=== PATIENT | female | born 1975 | race Hispanic/Latino ===

== ENCOUNTER 2017-05-08 15:45 | Emergency (ER) | payer BC, OTHER ==
[2017-05-08] MEDS ORDERED: ISOVUE-370 76%-LOCM 1 ML ONE (15:55)
[2017-05-08 16:06] LABS: Bilirubin Negative (Negative); Blood, Urine Trace (Negative); Glucose, Urine (Dipstick) Negative (Negative); Ketone, Urine Negative (Negative); Nitrite Negative (Negative); Protein, Urine (Dipstick) Negative (Neg-Trace); Urobilinogen 0.2 mg/dL (0.2-1.0)
[2017-05-08 16:19] LABS: Bacteria/HPF Rare-Few HPF (None Seen); Hyaline Casts/LPF 0-3 HYALINE CAST LPF (0-3 Hyaline); RBC/HPF 0-3 HPF (0-3); Squamous Epithelial 21-50 HPF (0-3); WBC/HPF 0-3 HPF (0-3)
[2017-05-08] MEDS ORDERED: Ondansetron HCl/PF 4 MG/2 ML Vial ONE (18:17)
[2017-05-08 20:14] LABS: #Eosinphils 0.7 thou/uL (0.0-0.7); #Lymphocytes 2.1 thou/uL (1.20-3.40); #Monocytes 0.8 thou/uL (0.11-0.59); #Neutrophils 4.9 thou/uL (1.40-6.50); %Basophils 0.4 % (0.0-1.0); %Eosinophils 7.9 % (0.0-10.0); %Lymphocytes 25.1 % (21.0-51.0); %Monocytes 9.1 % (0.0-10.0); Hematocrit 36.9 % (36.0-47.0); Mean Platelet Volume 8.7 fL (7.4-10.4); Red Blood Cell (RBC) Count 4.59 mill/uL (4.20-5.40); White Blood Cell (WBC) Count 8.4 thou/uL (4.8-10.8)
[2017-05-08 20:19] LABS: ALT (SGPT) 37 U/L (8-55); AST (SGOT) 30 U/L (5-34); Alkaline Phosphatase 80 U/L (40-150); Anion Gap 11 mmol/L (10-20); BUN (Urea Nitrogen) 13 mg/dL (7.0-18.7); Bilirubin, Total 0.3 mg/dL (0.2-1.2); Calc. Creatinine Clearance 0 mL/min (70-130); Calcium 9.4 mg/dL (7.8-10.44); Carbon Dioxide 27 mmol/L (22-29); Chloride 103 mmol/L (98-107); Estimated GFR-MDRD Greater than 90; Globulin 3.2 g/dL (2.4-3.5); Protein, Total 7.3 g/dL (6.0-8.3)
--- NOTE | 2017-05-08 21:39 | CT ---
CT ABDOMEN WITH IV CONTRAST CT PELVIS WITH IV CONTRAST: Date: 05-08-17 History: Right flank pain with pain radiating to right upper quadrant. History of frequent urinary t ract infections. FINDINGS: There is minimal atelectasis right lung base. A 3 cm low density lesion is seen within the midportion of the right kidney compatible with a renal cyst. Kidneys otherwise have a normal CT appearance bilaterally without evidence of hydronephrosis. The urinary bladder is completely decompressed and not well evaluated on this exam. Liver demonstrates mild diminished attenuation which may be reflective of mild fatty infiltration. L iver is otherwise normal in appearance. The spleen, pancreas, bilateral adrenal glands, left kidney and abdominal aorta demonstrate a normal CT appearance. The appendix is visualized and normal in diameter. There is no free fluid, fluid collection, or lymphadenopathy seen in the abdomen or pelvis. IMPRESSION: 1. No acute findings are seen in the abdomen or pelvis. 2. Right renal cyst. 3. No hydronephrosis is present, and kidneys demonstrate symmetric appearance and enhancement patter n bilaterally. 4. Decompressed urinary bladder which limits adequate evaluation. 5. No CT evidence of appendicitis. POS: [facility]
== END 2017-05-08 22:16 | disposition home or self-care (01) ==
LOC: ERS 15:45
DX: N28.1 Cyst of kidney, acquired (principal)
CPT/HCPCS: 74177; 80053; 81003; 81015; 81025; 85025; 96361; 96374; 96375; J2270; J2405

== ENCOUNTER 2017-08-26 17:53 | Emergency (ER) | payer BC, OTHER ==
[2017-08-26] MEDS ORDERED: Ketorolac Tromethamine 60 MG/2 ML VIAL ONE (18:19)
== END 2017-08-26 18:45 | disposition home or self-care (01) ==
LOC: ERS 17:53
DX: K02.9 Dental caries, unspecified (principal)
CPT/HCPCS: 96372; J1885

== ENCOUNTER 2018-03-07 19:26 | Emergency (ER) | payer BC | END 2018-03-07 21:33 | disposition left against medical advice (07) | LOC: ERS 19:26 | DX: Z53.21 Procedure and treatment not carried out due to patient leaving prior to being seen by health care provider (principal) ==

== ENCOUNTER 2018-09-25 11:03 | Emergency (ER) | payer BC ==
[~2018-09-25 11:03] MED LIST: ISOVUE-370 76%-LOCM 1 ML ONE
[2018-09-25 12:17] LABS: #Eosinphils 0.2 thou/uL (0.0-0.7); #Lymphocytes 1.2 thou/uL (1.20-3.40); #Monocytes 0.4 thou/uL (0.11-0.59); #Neutrophils 4.2 thou/uL (1.40-6.50); %Basophils 0.5 % (0.0-1.0); %Eosinophils 3.8 % (0.0-10.0); %Lymphocytes 20.1 % (21.0-51.0); %Monocytes 6.7 % (0.0-10.0); %Neutrophils 68.9 % (42.0-75.0); Mean Corpuscular HGB CONC 32.6 g/dL (32.0-36.0); Mean Corpuscular Hemoglobin 27.5 pg (27.0-31.0); Mean Corpuscular Volume 84.2 fL (78.0-98.0); Mean Platelet Volume 7.9 fL (7.4-10.4); Platelet Count 239 thou/uL (130-400); RBC Distribution Width 12.1 % (11.5-14.5); Red Blood Cell (RBC) Count 4.73 mill/uL (4.20-5.40); White Blood Cell (WBC) Count 6.1 thou/uL (4.8-10.8)
[2018-09-25 12:18] LABS: Bilirubin Negative (Negative); Blood, Urine Negative (Negative); Clarity CLOUDY (Clear); Glucose, Urine (Dipstick) Negative (Negative); Leukocyte Small (Negative); Nitrite Negative (Negative); Protein, Urine (Dipstick) Negative (Neg-Trace); Urobilinogen 0.2 mg/dL (0.2-1.0)
[2018-09-25 12:22] LABS: Bacteria/HPF None Seen HPF (None Seen); Hyaline Casts/LPF 0-3 HYALINE CAST LPF (0-3 Hyaline); Pathc Cast-AUWi Flag 1.01 (0-2.49); RBC/HPF 0-3 HPF (0-3); WBC/HPF 0-3 HPF (0-3)
[2018-09-25 12:41] LABS: ALT (SGPT) 31 U/L (8-55); AST (SGOT) 23 U/L (5-34); Albumin 4.2 g/dL (3.5-5.0); Alkaline Phosphatase 66 U/L (40-150); Anion Gap 9 mmol/L (10-20); BUN (Urea Nitrogen) 13 mg/dL (7.0-18.7); Bilirubin, Total 0.8 mg/dL (0.2-1.2); Calc. Creatinine Clearance 0 mL/min (70-130); Calcium 9.6 mg/dL (7.8-10.44); Carbon Dioxide 29 mmol/L (22-29); Chloride 103 mmol/L (98-107); Estimated GFR-MDRD 90; Globulin 3.2 g/dL (2.4-3.5); Glucose 90 mg/dL (70-105); Protein, Total 7.4 g/dL (6.0-8.3); Sodium 137 mmol/L (136-145)
--- NOTE | 2018-09-25 14:30 | CT ---
CT OF THE ABDOMEN AND PELVIS WITH CONTRAST: Date: 09/25/18 COMPARISON: 05/08/17. INDICATION: Bilateral flank pain. FINDINGS: Redemonstration of a parapelvic cyst of the anterior aspect of the upper to mid right kidney. Left ki dney is grossly unremarkable. No evidence of adrenal mass. There is generalized low attenuation of th e hepatic parenchyma, which may be related to hepatic steatosis. Correlate with liver function enzyme s. No acute abnormality of the pancreas or spleen. The bowel is incompletely evaluated without enteri c contrast administration. No free air or ascites. The abdominal aorta is normal caliber. There is no consolidation within the visualized lung bases. Osseous structures are intact. There is a stable sof t tissue structure with small hypodensities favoring an ovary with follicles, not significantly pimentel ed from 05/08/17 CT exam. As necessary, attempt could be performed to confirm with pelvic ultrasound. IMPRESSION: 1. Stable right renal cyst. 2. No acute abnormalities are identified. 3. Additional details are discussed above. POS: [facility]
[2018-09-27 21:50] LABS: Chlamydia by PCR Not Detected (NotDetected); GC by PCR Not Detected (NotDetected)
== END 2018-09-25 14:33 | disposition home or self-care (01) ==
LOC: ERS 11:03
DX: N89.8 Other specified noninflammatory disorders of vagina (principal); R10.9 Unspecified abdominal pain
CPT/HCPCS: 36415; 74177; 80053; 81003; 81015; 85025; 87480; 87491; 87510; 87591; 87660; Q9966

== ENCOUNTER 2018-11-25 15:56 | Emergency (ER) | payer BC ==
--- NOTE | 2018-11-25 16:41 | CT ---
CT head noncontrast HISTORY: Headache. COMPARISON: 02/04/2017. FINDINGS: There is no evidence of acute intracranial hemorrhage or infarct. The ventricles appear nor mal in size, shape and position. There is no mass effect or shift of midline structures. Visualized paranasal sinuses remain well aerated. IMPRESSION: No acute intracranial abnormalities are demonstrated.
[2018-11-25] MEDS ORDERED: Acetaminophen 500 MG TAB ONE (16:52)
[2018-11-25] MEDS ORDERED: Metoclopramide HCl 10 MG/2 ML VIAL ONE (16:52)
[2018-11-25] MEDS ORDERED: diphenhydrAMINE 50 MG/ML VIAL ONE (16:52)
[2018-11-25] MEDS ORDERED: Lidocaine 1% (PF) 30 ML VIAL ONE (17:28)
[2018-11-25 18:14] LABS: Color Of CSF Supernatant COLORLESS (Colorless); Tube # 1; Unspun CSF Color COLORLESS (Colorless)
[2018-11-25 18:21] LABS: CSF Source CSF; Clarity Clear (Clear); RBC Count - Manual 118 /cumm (None Seen); Tube # 2; WBC/NonHematics Count - Manual 1 /cumm (0-5)
[2018-11-25 18:22] LABS: CSF Source CSF; Clarity Clear (Clear); RBC Count - Manual 43 /cumm (None Seen); Tube # 4; WBC/NonHematics Count - Manual 0 /cumm (0-5)
[2018-11-25 18:26] LABS: CSF, Glucose 74 mg/dl (40-70); CSF, Protein 37 mg/dL (15-40)
== END 2018-11-25 19:05 | disposition home or self-care (01) ==
LOC: ERS 15:56
DX: R51 Headache (principal)
CPT/HCPCS: 62270; 70450; 82945; 84157; 87070; 87205; 89051; 96365; 96375; J1200; J2001; J2765

== ENCOUNTER 2019-03-10 19:23 | Emergency (ER) | payer BC ==
[2019-03-10] MEDS ORDERED: Acetaminophen 500 MG TAB ONE (21:09)
== END 2019-03-10 21:24 | disposition home or self-care (01) ==
LOC: ERS 19:23
DX: K04.7 Periapical abscess without sinus (principal)
CPT/HCPCS: 99282

== ENCOUNTER 2019-08-15 17:41 | Emergency (ER) | payer BC, SELFPAY ==
[2019-08-15 18:09] LABS: Bilirubin Negative (Negative); Blood, Urine Negative (Negative); Clarity Clear (Clear); Glucose, Urine (Dipstick) Normal (Negative); Leukocyte Negative Leu/uL (Negative); Nitrite Negative (Negative); Protein, Urine (Dipstick) Negative (Neg-Trace); Urobilinogen Normal mg/dL (Less than 2)
[2019-08-15 18:15] LABS: Pregnancy Test - Urine (BHCG) Negative (Negative); Pregu Control Background? CLEAR/WHITE (CLR/WHITE); Pregu Control Bar Appear? YES (CONTROL BAR); Specific Gravity 1.008 (1.002-1.036)
[2019-08-15 19:04] LABS: #Basophils 0.1 thou/uL (0.0-0.2); #Eosinphils 0.2 thou/uL (0.0-0.7); #Monocytes 0.8 thou/uL (0.11-0.59); #Neutrophils 6.4 thou/uL (1.40-6.50); %Basophils 0.6 % (0.0-1.0); %Eosinophils 2.4 % (0.0-10.0); %Monocytes 8.4 % (0.0-10.0); %Neutrophils 67.7 % (42.0-75.0); Hemoglobin 12.1 g/dL (12.0-16.0); Mean Corpuscular HGB CONC 34.2 g/dL (32.0-36.0); Mean Corpuscular Hemoglobin 27.3 pg (27.0-31.0); Mean Corpuscular Volume 79.9 fL (78.0-98.0); Mean Platelet Volume 8.2 fL (7.4-10.4); Platelet Count 202 thou/uL (130-400); Red Blood Cell (RBC) Count 4.43 mill/uL (4.20-5.40); White Blood Cell (WBC) Count 9.4 thou/uL (4.8-10.8)
[2019-08-15 19:24] LABS: ALT (SGPT) 53 U/L (8-55); AST (SGOT) 32 U/L (5-34); Albumin 4.1 g/dL (3.5-5.0); Alkaline Phosphatase 70 U/L (40-110); Anion Gap 10 mmol/L (10-20); BUN (Urea Nitrogen) 10 mg/dL (7.0-18.7); Bilirubin, Total 0.5 mg/dL (0.2-1.2); Calc. Creatinine Clearance 0 mL/min (70-130); Calcium 8.9 mg/dL (7.8-10.44); Carbon Dioxide 29 mmol/L (22-29); Chloride 102 mmol/L (98-107); Estimated GFR-MDRD 87; Globulin 2.9 g/dL (2.4-3.5); Glucose 114 mg/dL (70-105); Potassium 3.6 mmol/L (3.5-5.1); Sodium 137 mmol/L (136-145)
[2019-08-15] MEDS ORDERED: Ondansetron ODT 4 MG TAB ONE (21:06)
--- NOTE | 2019-08-15 21:45 | CT ---
EXAM: CT abdomen and pelvis without IV contrast PROVIDED CLINICAL HISTORY: Left flank pain COMPARISON: 09/25/2018 FINDINGS: The visualized lung bases are free of significant opacity. Stable right renal cyst. The solid abdominal organs demonstrate an otherwise unremarkable, unenhanced CT appearance. No evidence for urinary tract calculi or hydronephrosis. There is no bowel dilatation, inflammatory fat stranding, free fluid or free air apparent. There is n o evidence for appendicitis. No regional lymph node enlargement apparent. The regional major vascular structures appear unremarkab le. The osseous structures demonstrate no concerning lytic or blastic lesions. IMPRESSION: No evidence for urinary tract calculi or hydronephrosis.
== END 2019-08-15 22:00 | disposition home or self-care (01) ==
LOC: ERS 17:41
DX: R10.31 Right lower quadrant pain (principal)
CPT/HCPCS: 36415; 74176; 80053; 81003; 81025; 85025; Q0162

== ENCOUNTER 2020-01-25 04:18 | Emergency (ER) | payer SELFPAY ==
--- NOTE | 2020-01-25 07:57 | RAD ---
Exam: Chest one view HISTORY:Chest pain Comparison: None FINDINGS: Cardiac silhouette: Normal Aorta: Unremarkable Pulmonary vessels: Normal Costophrenic angles: Clear LUNGS: No masses or consolidation. Pneumothorax: None Osseous abnormalities: None IMPRESSION: No acute cardiopulmonary process.
== END 2020-01-25 05:19 | disposition home or self-care (01) ==
LOC: ERS 04:18
DX: R07.89 Other chest pain (principal)
CPT/HCPCS: 71045; 93005

== ENCOUNTER 2020-10-27 10:39 | Emergency (ER) | payer SELFPAY ==
[2020-10-27] MEDS ORDERED: Acetaminophen 500 MG TAB ONE (11:20)
[2020-10-27] MEDS ORDERED: Ondansetron PF 4 MG/2 ML Vial ONE (11:20)
[2020-10-27] MEDS ORDERED: Iopamidol-370 76% 500 ML 1 ML ONE (11:28)
[2020-10-27 11:46] LABS: #Eosinphils 0.4 thou/uL (0.0-0.7); #Lymphocytes 1.7 thou/uL (1.20-3.40); #Monocytes 0.7 thou/uL (0.11-0.59); #Neutrophils 6.4 thou/uL (1.40-6.50); %Basophils 0.1 % (0.0-1.0); %Eosinophils 4.2 % (0.0-10.0); %Lymphocytes 18.8 % (21.0-51.0); %Monocytes 7.2 % (0.0-10.0); %Neutrophils 69.7 % (42.0-75.0); Hemoglobin 12.3 g/dL (12.0-16.0); Mean Corpuscular HGB CONC 34.1 g/dL (32.0-36.0); Mean Corpuscular Hemoglobin 28.3 pg (27.0-31.0); Mean Corpuscular Volume 82.8 fL (78.0-98.0); Mean Platelet Volume 8.1 fL (7.4-10.4); Platelet Count 240 thou/uL (130-400); RBC Distribution Width 12.4 % (11.5-14.5); Red Blood Cell (RBC) Count 4.37 mill/uL (4.20-5.40); White Blood Cell (WBC) Count 9.2 thou/uL (4.8-10.8)
[2020-10-27 12:10] LABS: ALT (SGPT) 91 U/L (8-55); AST (SGOT) 65 U/L (5-34); Albumin 4.1 g/dL (3.5-5.0); Alkaline Phosphatase 64 U/L (40-110); Anion Gap 14 mmol/L (10-20); BUN (Urea Nitrogen) 9 mg/dL (7.0-18.7); Bilirubin, Total 0.8 mg/dL (0.2-1.2); Calc. Creatinine Clearance 0 mL/min (70-130); Calcium 9.1 mg/dL (7.8-10.44); Carbon Dioxide 27 mmol/L (22-29); Chloride 102 mmol/L (98-107); Globulin 2.8 g/dL (2.4-3.5); Glucose 128 mg/dL (70-105); Lipase 6 U/L (8-78); Potassium 4.2 mmol/L (3.5-5.1); Protein, Total 6.9 g/dL (6.0-8.3); Sodium 139 mmol/L (136-145)
[2020-10-27 12:55] LABS: Bilirubin Negative (Negative); Blood, Urine Negative (Negative); Clarity Clear (Clear); Glucose, Urine (Dipstick) Normal (Negative); Ketone, Urine Negative (Negative); Leukocyte Negative Leu/uL (Negative); Nitrite Negative (Negative); Pregnancy Test - Urine (BHCG) Negative (Negative); Pregu Control Background? CLEAR/WHITE (CLR/WHITE); Pregu Control Bar Appear? YES (CONTROL BAR); Protein, Urine (Dipstick) Negative (Neg-Trace); Specific Gravity 1.014 (1.002-1.036); Specific Gravity, Urine 1.014 (1.002-1.036); Urobilinogen Normal mg/dL (Less than 2); pH, Urine 6.5 (5.0-9.0)
[2020-10-27 14:53] LABS: Troponin I Less than 0.010 ng/mL (< 0.028)
== END 2020-10-27 15:24 | disposition home or self-care (01) ==
LOC: ERS 10:39
DX: R10.84 Generalized abdominal pain (principal); R79.89 Other specified abnormal findings of blood chemistry; R19.7 Diarrhea, unspecified; R03.0 Elevated blood-pressure reading, without diagnosis of hypertension; R11.2 Nausea with vomiting, unspecified
CPT/HCPCS: 36415; 74177; 76705; 80053; 81003; 81025; 83690; 84484; 85025; 93005; 96374; J2405; Q9967

== ENCOUNTER 2020-10-28 16:56 | Emergency (ER) | payer SELFPAY ==
[~2020-10-28 16:56] MED LIST changes: -ISOVUE-370 76%-LOCM 1 ML ONE; +Iopamidol-370 76% 500 ML 1 ML ONE
[2020-10-28] MEDS ORDERED: Morphine 4 MG/ML VIAL ONE (18:08)
[2020-10-28] MEDS ORDERED: Ondansetron PF 4 MG/2 ML Vial ONE (18:08)
== END 2020-10-28 21:37 | disposition home or self-care (01) ==
LOC: ERS 16:56
DX: K51.00 Ulcerative (chronic) pancolitis without complications (principal); E86.0 Dehydration; R82.4 Acetonuria; D72.829 Elevated white blood cell count, unspecified; R74.01 Elevation of levels of liver transaminase levels
CPT/HCPCS: 36415; 74177; 80053; 81003; 81015; 81025; 83605; 83690; 84484; 85025; 87077; 87086; 87186; 93005; 96372; 96374; 96375; J0500; J2270; J2405; Q9967

== ENCOUNTER 2021-01-13 10:35 | Outpatient (CLI) | payer OTHER | END 2021-01-13 10:36 | disposition home or self-care (01) | LOC: SCSRAD 10:35 | PROVIDERS: ATTEND Family Medicine | DX: M54.41 Lumbago with sciatica, right side (principal); M47.814 Spondylosis without myelopathy or radiculopathy, thoracic region; M47.816 Spondylosis without myelopathy or radiculopathy, lumbar region | CPT/HCPCS: 72072; 72100 ==

== ENCOUNTER 2021-02-12 08:59 | Outpatient (CLI) | payer OTHER | END 2021-02-12 09:00 | disposition home or self-care (01) | LOC: TBSIIMAG 08:59 | PROVIDERS: ATTEND Family Medicine | DX: M51.9 Unspecified thoracic, thoracolumbar and lumbosacral intervertebral disc disorder (principal); M47.816 Spondylosis without myelopathy or radiculopathy, lumbar region; M89.9 Disorder of bone, unspecified | CPT/HCPCS: 72148 ==

== ENCOUNTER 2021-04-20 09:45 | Outpatient (CLI) | payer OTHER | END 2021-04-20 09:46 | disposition home or self-care (01) | LOC: ULT 09:45 | PROVIDERS: ATTEND Family Medicine | DX: R79.89 Other specified abnormal findings of blood chemistry (principal); K76.0 Fatty (change of) liver, not elsewhere classified; N28.1 Cyst of kidney, acquired | CPT/HCPCS: 76705 ==

== ENCOUNTER 2021-09-01 13:37 | Outpatient (CLI) | payer OTHER | END 2021-09-01 13:38 | disposition home or self-care (01) | LOC: BICMAMMO 13:37 | PROVIDERS: ATTEND Family Medicine | DX: Z12.31 Encounter for screening mammogram for malignant neoplasm of breast (principal) | CPT/HCPCS: 77063; 77067 ==